=== PATIENT | male | born 1970 | race Caucasian/White ===

== ENCOUNTER 2017-03-24 13:29 | Emergency (ER) | payer MEDICAID ==
[~2017-03-24] VITALS: Ht 170.2 cm; Wt 84.8 kg
[~2017-03-24 13:29] MED LIST: AMOXICILLIN 50500 MG PO; APAP/BUTALBITAL1 TA1 PO; BACTRIM DS 8001 TA1 PO; KEFLEX 500MG.500 MG PO; LORTAB 5/500 501 TAB PO; NOMEDS *; NORCO 325 MG-51 TAB PO; PREDNISONE 20MG20 MG PO; PROTONIX 40MG T40 MG PO; SERZONE PO; TESSALON PERLE100 MG PO; TYLENOL W/CODEI1 TA2 PO; VICODIN 5/500 T1 TAB PO; VOLTAREN75 MG PO; ZITHROMAX Z PA250 MG PO
[2017-03-24] MEDS ORDERED: PRILOSEC20 M1 PO (13:39)
[2017-03-24 13:47] LABS: HEMOGLOBIN 15.7 g/dL (14.1-18.0); LYMPH % 30.6 % (10-50)
--- NOTE | 2017-03-24 13:50 | Emergency Room Report ---
History of Present Illness Time Seen by 134Yvonne Presenting Problem in Triage Pt arrived:Walked Presenting Problem:PT REPORTS R FLANK "PRESSURE" THAT BEGAN THIS MORNING PT REPORTS PAIN BECAME MORE INTENSE AFTER URINATING, REPORTS PAIN WAS SHARP AT THAT TIME. 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 N Clinical Suspician of Infection? N Mental Status: 1 - Regular (Normal Baseline) Sepsis Risk:Low Sepsis Risk Have you (or family members/close friends) recently traveled outside the [place]? N If Yes, where/when: Have you had exposure to infectious disease within the past month? N TB? Other? Specify: Patient with hx of chronic lumbar pain s/p remote hx of trauma w/o surgical intervention; over past two weeks has had some back spasms with pain radiating down right knee and foot; no loss of bowel/bladder function; states urine "looked dark" yesterday and this morning had acute intense right flank pain that was relieved with taking Ibuprofen two hours ago. Also had some nausea. No vomiting or abdominal pain. Pain not positional but 'feels like a torn muscle". Has mother with extensive hx renal calculi. Patient denies DM, and denies personal hx calculi. He strictly drinks Mountain Dew. ALLERGIES Coded Allergies: No Known Allergies (06/27/16) Home Medications Reported Medications OMEPRAZOLE MAGNESIUM (Prilosec 20MG) 20 MG PO DAILY History Medical History General CAD? No Angina: No [place]: No Hypertension? No Hyperlipidemia? No CHF? No DVT? No PE? No COPD? No Asthma? No Anemia? No GERD? Yes Gastric ulcers? No GI Bleed? No Hernia? No Thyroid Problems? No Hypothyroidism? No CVA? No Seizures? No Diabetes? No Insulin Dependent: No Insulin Pump: No Home FSBS? No Renal Insuffiency? No End Stage Renal Disease? No UTI? No Stones? No BPH? No GB Disease: No Nephritic Syndrome? No Asplenia? No Hepatitis? No Sickle Cell Disease? No Arthritis? No Migraines? No Cataracts? No Glaucoma? No MRSA? No HIV? No TB? No Anxiety? No Depression? No Cancer? No More? No Immunization Hx DT/Tetanus 1-4 YRS Surgical Hx Previous Surgery?Y Appendix Family History Family Hx Diabetes No CAD No Hypertension No Hyperlipidemia No Cancer No TB No Social History Smoking Hx Smoker: Current Every Day Smoker Tobacco: Yes Type Cigarettes Packs/day 1 1/2 - 2 Packs Alcohol Alcohol: Yes Review of Systems All Other Systems Reviewed and Negative Genitourinary see HPI. Musculoskeletal see HPI Psychiatric/Neurological see HPI (no loss bowel/bladder fxn) Physical Exam Vital Signs Vital Signs Date Time Temp Pulse Resp B/P Pulse O2 O2 Flow FiO2 Ox Delivery Rate 03/24 1344 18 03/24 1333 97.7 74 18 146/108 98 General Appearance normal appearance, WD/WN, no apparent distress Eye Exam - bilateral eye normal exam, bilateral eye PERRL, bilateral eye EOMI Neck normal inspection, non-tender, supple, full range of motion Respiratory Status Yes: trachea midline, chest symmetrical, non tender chest. No: respiratory distress, tender on palpation, use of accessory muscles, pain on inspiration, pain on expiration, productive cough, non productive cough. Lung Sounds bilateral: normal breath sounds, lungs clear. Cardiovascular normal exam, regular rate/rhythm, no peripheral edema, no gallop, no JVD, no murmur, no rub, normal peripheral pulses Gastrointestinal normal bowel sounds, normal exam, non tender, soft, no organomegaly, no pulsatile mass, no guarding, no rebound Back normal inspection, no CVA tenderness, no vertebral tenderness, bowel/ bladder continent, gait normal, muscle spasm (L glute pos trigger point), strt leg raising(L)-NML, strt leg raising(R)-NML Extremities non-tender, normal range of motion, normal inspection, normal capillary refill Strength 5 Upper Ext (L), 5 Upper Ext (R), 5 Lower Ext (L), 5 Lower Ext (R) Neurologic alert, normal exam, no motor/sensory deficits, oriented x 3 (gait steady no tremor) Glascow Coma Scale Glascow Coma Scale Response Value EYE response: 4 Spontaneously 4 MOTOR response: 6 OBEYS 6 VERBAL response: 5 Oriented & Converses 5 Total 15 Reflexes Reflexes normal Yes DTR 3+ ankle (R), 3+ ankle (L) Skin intact, normal color, warm/dry, no rash cons.w/shingles Medical Decision Making LABS/Meds/Orders Pt receiving controlled substance in ED? No Results/Orders Laboratory Tests 03/24/17 1425: Urine Color YELLOW, Urine Appearance CLEAR, Urine pH 6.0, Ur Specific Herrick >= 1.030, Urine Protein NEGATIVE, Urine Ketones NEGATIVE, Urine Blood NEGATIVE, Urine Nitrate NEGATIVE, Urine Bilirubin NEGATIVE, Urine Urobilinogen 0.2, Ur Leukocyte Esterase NEGATIVE, Urine Glucose NEGATIVE 03/24/17 1340: Sodium 138, Potassium 3.8, Chloride 101, Carbon Dioxide 29, BUN 21 H, Creatinine 1.1, Estimated Creat Clear 101, Estimated GFR (MDRD) 72, Glucose 97, Calcium 9.1, Total Bilirubin 0.4, AST 37, ALT 80 H, Alkaline Phosphatase 91, Total Protein 7.8, Albumin 4.3, Globulin 3.5 H, Albumin/Globulin Ratio 1.2, WBC 9.6, RBC 5.06, Hgb 15.7, Hct 45.6, MCV 90.2, RDW 13.7, Plt Count 245, MPV 7.7, Gran % 62.2, Gran # 6.0, Lymphocytes % 30.6, Monocytes % 3.6, Eosinophils % 2.9, Basophils % 0.6, Lymphocytes # 3.0, Monocytes # 0.4, Eosinophils # 0.3, Basophils # 0.1, PUBS MCHC 34.5, MCH 31.1 Current Medication Orders Sig/[place] Start time Last Medication Dose Route Stop Time Status Admin Ketorolac 30 MG ONCE ONE 03/24 1345 DC 03/24 Tromethamine IV 03/24 1346 1344 Ondansetron HCl 4 MG ONCE ONE 03/24 1345 DC 03/24 IV 03/24 1346 1343 Sodium Chloride 10 ML PRN PRN 03/24 1345 AC IV 03/25 1342 Sodium Chloride 1,000 ML .Q1H1M 03/24 1345 DC 03/24 IV 03/24 1445 1344 Sodium Chloride 10 ML PRN PRN 03/24 1345 AC IV 03/25 1343 Ondansetron HCl 0 .STK-MED ONE 03/24 1340 DC .ROUTE Sodium Chloride 1,000 ML .STK-MED ONE 03/24 1340 DC IV Ketorolac 0 .STK-MED ONE 03/24 1339 DC Tromethamine .ROUTE Orders Procedure Date/time Status DIET-NOTHING BY MOUTH 03/[address] ABD/PELVIS REQ 03/24 1345 Active IV SALINE LOCK 03/24 1343 Active URINALYSIS/COMPLETE 03/24 1343 Complete CBC WITH AUTO DIFF 03/24 1343 Complete CHEM 12 PROFILE 03/24 1343 Complete XRAY/CT/US XRAY/CT/US CT abdomen, pelvis CT interpretation by reviewed by me Time results known: 1418 CT Results normal/NAD (fatty liver neg acute) Departure Departure Time of Disposition 1445 Disposition DC Home or Self Care(routine) Clinical Impression Primary Impression: Acute right flank pain Condition STABLE Patient Instructions DI for Musculoskeletal Pain Additional Instructions Rx Naproxen, Flexeril, see family doctor of choice in one week to recheck blood pressure and recheck back Discharge Counseling Counseled pt/family regarding diagnosis, test results, medications/RX, home care, follow up needs Prescriptions Current Visit Scripts NAPROXEN (NAPROXEN 500MG TAB) 500 MG PO BIDP PRN pain #20 TAB Cyclobenzaprine Hcl (Flexeril) 5 MG PO BID PRN muscle spasm #6 TAB ED Critical Care Critical Care No at 1440
--- NOTE | 2017-03-24 14:15 | RADIOLOGY REPORT PS360 ---
CT ABD PELVIS W/O CONTRAST CLINICAL INDICATION: Right flank pain R FLANK PAIN, KIDNEY STONE PROTOCOL ORDERING PHYSICIAN: Olag Pereyra MD PATIENT AGE: 47 years COMPARISON: None TECHNIQUE: Axial images obtained with sagittal and coronal reformats. PROCEDURE: Oral Contrast: None IV Contrast: None . FINDINGS: No acute finding on bases. There is diffuse fatty liver. No radio opaque gallstones or biliary dilatation. The spleen, adrenal glands, and pancreas are unremarkable. No hydronephrosis or ureteral calculi. Unremarkable urinary bladder. Prior appendectomy. No evidence of diverticulitis. No pelvic mass, focal inflammatory change, or abnormal fluid collection evident. No intestinal obstruction or free air. Is a tiny umbilical hernia containing fat. There is sclerosis of the SI joints with partial fusion. No acute bony anomalies. IMPRESSION: 1. No acute intra-abdominal or pelvic pathology. 2. Diffuse fatty liver
[2017-03-24 14:31] LABS: URINE BILIRUBIN - DIPSTICK NEGATIVE (NEG); URINE BLOOD NEGATIVE (NEG)
[2017-03-24 14:46] LABS: URINE SQUAMOUS CELLS OCC #/hpf (OCC)
[2017-03-24] MEDS ORDERED: NAPROXEN SODIU500 MG PO (14:47)
[2017-03-24] MEDS ORDERED: FLEXERIL10 MG PO (14:47)
[2017-03-24 14:50] VITALS: BP 134/70
== END 2017-03-24 14:50 | disposition home or self-care (01) ==
LOC: ER 13:29
PROVIDERS: Emergency Medicine
DX: R10.11 Right upper quadrant pain (principal); K21.9 Gastro-esophageal reflux disease without esophagitis; Z72.0 Tobacco use
CPT/HCPCS: J2405

== ENCOUNTER 2017-04-27 10:54 | Emergency (ER) | payer MEDICAID ==
[~2017-04-27] VITALS: Ht 170.2 cm; Wt 83.9 kg
[~2017-04-27 10:54] MED LIST changes: +FLEXERIL10 MG PO; +NAPROXEN SODIU500 MG PO; +PRILOSEC20 M1 PO
--- NOTE | 2017-04-27 11:20 | Urgent Treatment Center Report ---
History of Present Issue Date/Time Seen by Provider 04/27/17 1110 Visit Reason Pt arrived:Walked Presenting Problem:STATES SORE THROAT X1 WEEK Location if Accident: Onset of symptoms date/time:/ or onset unknown for:MEDICAL HX UNKNOWN Have you (or family members/close friends) recently traveled outside the [place]? N If Yes, where/when: Have you had exposure to infectious disease within the past month? TB? Other? Specify: Patient states that he has had sore throat now for over a week that has continued to get worse. State that throat is red, and hurts when he swallows State that it has continued to get worse. State that he has drainage in the back of his throat State that at night his symptoms seem to be worse at night and his throat feels more irritated ALLERGIES Coded Allergies: No Known Allergies (06/27/16) Home Medications Active Scripts Cyclobenzaprine Hcl (Flexeril) 5 MG PO BID PRN muscle spasm #6 TAB Prov: 03/24/17 Discontinued Scripts NAPROXEN (NAPROXEN 500MG TAB) 500 MG PO BIDP PRN pain #20 TAB Prov: 03/24/17 DC: 04/22/17 0000 Reported Medications OMEPRAZOLE MAGNESIUM (Prilosec 20MG) 20 MG PO DAILY History Medical History General CAD? No Angina: No [place]: No Hypertension? No Hyperlipidemia? No CHF? No DVT? No PE? No COPD? No Asthma? No Anemia? No GERD? Yes Gastric ulcers? No GI Bleed? No Hernia? No Thyroid Problems? No Hypothyroidism? No CVA? No Seizures? No Diabetes? No Insulin Dependent: No Insulin Pump: No Home FSBS? No Renal Insuffiency? No UTI? No Stones? No BPH? No GB Disease: No Nephritic Syndrome? No Asplenia? No Hepatitis? No Sickle Cell Disease? No Arthritis? No Migraines? No Cataracts? No Glaucoma? No MRSA? No HIV? No TB? No Anxiety? No Depression? No Cancer? No More? No Immunization HX DT/Tetanus 1-4 YRS Surgical Hx Previous Surgery?Y Appendix Family History Family HX Diabetes No CAD No Hypertension No Hyperlipidemia No Cancer No TB No Social History Smoking Hx Smoker: Current Every Day Smoker Tobacco: Yes Type Cigarettes Packs/day 1 1/2 - 2 Packs Alcohol Alcohol: Yes Review of Systems All Other Systems Reviewed and Negative Constitutional chills ENT nose congestion, throat pain, throat swelling. Respiratory denies shortness of breath, denies wheezing Physical Exam Vital Signs Vital Signs Date Time Temp Pulse Resp B/P Pulse O2 O2 Flow FiO2 Ox Delivery Rate 04/27 1108 98.4 92 18 138/84 97 General Appearance normal appearance, WD/WN, no apparent distress Ear, Nose, Throat tonsillar swelling, Throat red irritated, drainage noted in back of throat Respiratory Status Yes: trachea midline, chest symmetrical, non tender chest. No: respiratory distress. Lung Sounds bilateral: normal breath sounds, lungs clear. 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 No Results/Orders Laboratory Tests 04/27/17 1100: Group A Strep Screen NOT DETECTED Orders Procedure Date/time Status [facility] STREP SCREEN 04/27 1101 Complete Departure Departure Time of Disposition 1120 Disposition DC Home or Self Care(routine) Clinical Impression Primary Impression: Pharyngitis Qualifiers: Pharyngitis/tonsillitis etiology: unspecified etiology Qualified Code: J02.9 - Acute pharyngitis, unspecified Condition STABLE Patient Instructions DI for Pharyngitis/Tonsillopharyngitis -- Adult Additional Instructions * Monitor Temp. Tylenol and/or Ibuprofen as needed. ER if fever is no less than 101 despite alternating Tylenol and Ibuprofen * Encourage fluids, water, Gatorade, powerade, pedialyte if infant/toddler/or child * Warm salt water gargles for throat irritation *Warm fluids *Sore throat lozenges *Sleep elevated *humidifier or vaporizer Follow up IMMEDIATELY for new or worsening of symptoms OR no noticeable improvement over the next 48-72 hours. 911 immediately for any life threatening symptoms such as chest pain or difficulty breathing Discharge Counseling Counseled pt/family regarding diagnosis, test results, medications/RX, home care, follow up needs Prescriptions Current Visit Scripts Azithromycin (Zithromycin (Z-MERI) 250MG Tab) 250 MG PO DAILY #6 TAB TAKE TWO (2) TABLETS ON DAY 1, THEN ONE (1) TABLET DAY #2 THRU #5 Methylprednisolone (Medrol Dose Meri) 4 MG PO UD #1 MERI TAKE DIRECTED ON PACKAGING at 1120
--- NOTE | 2017-04-27 11:20 | Urgent Treatment Center Report ---
History of Present Issue Date/Time Seen by Provider 04/27/17 1110 Visit Reason Pt arrived:Walked Presenting Problem:STATES SORE THROAT X1 WEEK Location if Accident: Onset of symptoms date/time:/ or onset unknown for:MEDICAL HX UNKNOWN Have you (or family members/close friends) recently traveled outside the [place]? N If Yes, where/when: Have you had exposure to infectious disease within the past month? TB? Other? Specify: Patient states that he has had sore throat now for over a week that has continued to get worse. State that throat is red, and hurts when he swallows State that it has continued to get worse. State that he has drainage in the back of his throat State that at night his symptoms seem to be worse at night and his throat feels more irritated ALLERGIES Coded Allergies: No Known Allergies (06/27/16) Home Medications Active Scripts Cyclobenzaprine Hcl (Flexeril) 5 MG PO BID PRN muscle spasm #6 TAB Prov: 03/24/17 Discontinued Scripts NAPROXEN (NAPROXEN 500MG TAB) 500 MG PO BIDP PRN pain #20 TAB Prov: 03/24/17 DC: 04/22/17 0000 Reported Medications OMEPRAZOLE MAGNESIUM (Prilosec 20MG) 20 MG PO DAILY History Medical History General CAD? No Angina: No [place]: No Hypertension? No Hyperlipidemia? No CHF? No DVT? No PE? No COPD? No Asthma? No Anemia? No GERD? Yes Gastric ulcers? No GI Bleed? No Hernia? No Thyroid Problems? No Hypothyroidism? No CVA? No Seizures? No Diabetes? No Insulin Dependent: No Insulin Pump: No Home FSBS? No Renal Insuffiency? No UTI? No Stones? No BPH? No GB Disease: No Nephritic Syndrome? No Asplenia? No Hepatitis? No Sickle Cell Disease? No Arthritis? No Migraines? No Cataracts? No Glaucoma? No MRSA? No HIV? No TB? No Anxiety? No Depression? No Cancer? No More? No Immunization HX DT/Tetanus 1-4 YRS Surgical Hx Previous Surgery?Y Appendix Family History Family HX Diabetes No CAD No Hypertension No Hyperlipidemia No Cancer No TB No Social History Smoking Hx Smoker: Current Every Day Smoker Tobacco: Yes Type Cigarettes Packs/day 1 1/2 - 2 Packs Alcohol Alcohol: Yes Review of Systems All Other Systems Reviewed and Negative Constitutional chills ENT nose congestion, throat pain, throat swelling. Respiratory denies shortness of breath, denies wheezing Physical Exam Vital Signs Vital Signs Date Time Temp Pulse Resp B/P Pulse O2 O2 Flow FiO2 Ox Delivery Rate 04/27 1108 98.4 92 18 138/84 97 General Appearance normal appearance, WD/WN, no apparent distress Ear, Nose, Throat tonsillar swelling, Throat red irritated, drainage noted in back of throat Respiratory Status Yes: trachea midline, chest symmetrical, non tender chest. No: respiratory distress. Lung Sounds bilateral: normal breath sounds, lungs clear. 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 No Results/Orders Laboratory Tests 04/27/17 1100: Group A Strep Screen NOT DETECTED Orders Procedure Date/time Status [facility] STREP SCREEN 04/27 1101 Complete Departure Departure Time of Disposition 1120 Disposition DC Home or Self Care(routine) Clinical Impression Primary Impression: Pharyngitis Qualifiers: Pharyngitis/tonsillitis etiology: unspecified etiology Qualified Code: J02.9 - Acute pharyngitis, unspecified Condition STABLE Patient Instructions DI for Pharyngitis/Tonsillopharyngitis -- Adult Additional Instructions * Monitor Temp. Tylenol and/or Ibuprofen as needed. ER if fever is no less than 101 despite alternating Tylenol and Ibuprofen * Encourage fluids, water, Gatorade, powerade, pedialyte if infant/toddler/or child * Warm salt water gargles for throat irritation *Warm fluids *Sore throat lozenges *Sleep elevated *humidifier or vaporizer Follow up IMMEDIATELY for new or worsening of symptoms OR no noticeable improvement over the next 48-72 hours. 911 immediately for any life threatening symptoms such as chest pain or difficulty breathing Discharge Counseling Counseled pt/family regarding diagnosis, test results, medications/RX, home care, follow up needs Prescriptions Current Visit Scripts Azithromycin (Zithromycin (Z-MERI) 250MG Tab) 250 MG PO DAILY #6 TAB TAKE TWO (2) TABLETS ON DAY 1, THEN ONE (1) TABLET DAY #2 THRU #5 Methylprednisolone (Medrol Dose Meri) 4 MG PO UD #1 MERI TAKE DIRECTED ON PACKAGING at 1124
[2017-04-27] MEDS ORDERED: ZITHROMAX Z PA250 MG PO (11:23)
[2017-04-27] MEDS ORDERED: MEDROL 4MG. DOSE4 MG PO (11:23)
[2017-04-27 11:24] VITALS: BP 138/84
== END 2017-04-27 11:27 | disposition home or self-care (01) ==
LOC: UTC 10:54
DX: J02.9 Acute pharyngitis, unspecified (principal); F17.210 Nicotine dependence, cigarettes, uncomplicated